=== PATIENT | female | born 1995 | race Caucasian/White ===

== ENCOUNTER 2018-10-04 02:29 | Emergency (ER) | payer MEDICAID ==
[~2018-10-04] VITALS: Ht 154.9 cm; Wt 89.8 kg
[2018-10-04 03:00] VITALS: BP_SYST 132
--- NOTE | 2018-10-04 03:08 | NUR ---
Pt ambulatory to bed 6 for evaluation
--- NOTE | 2018-10-04 03:20 | NUR ---
Patient AOx4, ambulatory, presents to ER with complaint of right breast pain 8/10 since yesterday at 1700. Patient states she had a normal vaginal delivery 2 months ago to twins. Patient states she is the twins. Patient states she also pumps milk. No other symptoms or complaints at this time. Mother at bedside.
--- NOTE | 2018-10-04 03:58 | NUR ---
TEDDY TORRES at bedside for medical evaluation.
--- NOTE | 2018-10-04 03:59 | NUR ---
ER MD Bowman performed right breast exam.
[2018-10-04] MEDS ORDERED: ACETAMINOPHEN 325 MG TABLET PO ONE (04:15)
--- NOTE | 2018-10-04 04:31 | NUR ---
pt resting comfortably in bed. no acute distress, will continue to monitor.
[2018-10-04 05:54] VITALS: BP_SYST 131
--- NOTE | 2018-10-04 05:54 | NUR ---
Patient given written and verbal discharge instructions and verbalizes understanding. ER MD discussed with patient the results and treatment provided. Patient in stable condition. ID arm band removed. Rx of Acetaminophen given. Patient educated on pain management and to follow up with PMD. Pain Scale 0. Opportunity for questions provided and answered. Medication side effect fact sheet provided.
== END 2018-10-04 05:54 | disposition home or self-care (01) ==
LOC: SED 02:29
DX: N60.02 Solitary cyst of left breast (principal); N64.4 Mastodynia
CPT/HCPCS: 76642; 99284

== ENCOUNTER 2019-07-01 10:07 | Emergency (ER) | payer MEDICAID ==
[~2019-07-01] VITALS: Ht 154.9 cm; Wt 68.0 kg
[2019-07-01 10:35] VITALS: BP_SYST 129
[2019-07-01 10:53] LABS: BASOPHILS % (AUTO) 0.4 % (0.0-2.0); EOSINOPHILS % (AUTO) 0.6 % (0.0-4.0); HEMATOCRIT 37.8 % (36-48); HEMOGLOBIN 12.5 g/dL (12.0-16.0); LYMPHOCYTES # (AUTO) 0.5 K/uL (1.0-5.5); LYMPHOCYTES % (AUTO) 10.3 % (20.5-51.5); MEAN CORPUSCULAR HEMOGLOBIN 27 pg (27-31); MEAN CORPUSCULAR HGB CONC 33 % (32-36); MEAN CORPUSCULAR VOLUME 82 fL (79.0-98.0); MONOCYTES # (AUTO) 0.5 K/uL (0.0-1.0); MONOCYTES % (AUTO) 9.6 % (1.7-9.3); NEUTROPHILS # (AUTO) 4.2 K/uL (1.8-7.7); NEUTROPHILS % (AUTO) 79.1 % (40.0-70.0); PLATELET COUNT (AUTO) 190 K/uL (130-430); RED BLOOD CELL COUNT(AUTO) 4.62 MIL/uL (4.2-6.2); WHITE BLOOD COUNT (AUTO) 5.3 K/uL (4.8-10.8)
[2019-07-01 11:05] LABS: INR 1.1 (0.8-1.2); PROTHROMBIN TIME 10.6 SECS (9.5-12.5)
[2019-07-01 11:06] LABS: BILIRUBIN,URINE NEGATIVE (NEGATIVE); BLOOD, URINE NEGATIVE (NEGATIVE); CLARITY/URINE CLEAR (CLEAR); COLOR,URINE YELLOW (YELLOW); GLUCOSE,URINE NEGATIVE (NEGATIVE); KETONES,URINE NEGATIVE (NEGATIVE); LEUKOCYTE ESTERASE ,URINE NEGATIVE (NEGATIVE); NITRITE, URINE NEGATIVE (NEGATIVE); PH,URINE 8.5 (5.0-8.0); PROTEIN URINE NEGATIVE (NEGATIVE); UROBILINOGEN,URINE 0.2 (0.2-1.0)
[2019-07-01 11:16] LABS: ALBUMIN 3.8 g/dL (3.4-4.8); CALCIUM 8.8 mg/dL (8.4-11.0); CREATININE 0.58 mg/dL (0.55-1.30); POTASSIUM 3.5 mmol/L (3.5-5.1); TOTAL BILIRUBIN 0.3 mg/dL (0.0-1.0)
[2019-07-01 11:55] VITALS: BP_SYST 129
== END 2019-07-01 11:15 | disposition home or self-care (01) ==
LOC: SED 10:07
DX: N61.0 Mastitis without abscess (principal); J06.9 Acute upper respiratory infection, unspecified; R05 Cough; J45.909 Unspecified asthma, uncomplicated
CPT/HCPCS: 36415; 71045; 80053; 81003; 81025; 82550-TC; 83605; 83690-TC; 84484; 85025; 85610-TC; 85730-TC; 87040-TC; 99284

== ENCOUNTER 2019-07-16 13:39 | Emergency (ER) | payer MEDICAID ==
[~2019-07-16] VITALS: Ht 154.9 cm; Wt 74.8 kg
[2019-07-16 13:53] VITALS: BP_SYST 108
[2019-07-16] MEDS ORDERED: ONDANSETRON 4 MG ODT TAB PO ONE (14:30)
--- NOTE | 2019-07-16 16:31 | NUR ---
Patient to [facility] for evaluation. Side rails up.
--- NOTE | 2019-07-16 16:32 | NUR ---
ER YOLANDA Myrick examining patient.
--- NOTE | 2019-07-16 16:33 | NUR ---
PT PRESENTS TO ED C/O N/V/D S/P FINISHED TX FOR PNA.
--- NOTE | 2019-07-16 16:44 | NUR ---
Moved to bed 2.
[2019-07-16 16:48] LABS: BILIRUBIN,URINE 1+ (NEGATIVE); BLOOD, URINE NEGATIVE (NEGATIVE); COLOR,URINE YELLOW (YELLOW); GLUCOSE,URINE NEGATIVE (NEGATIVE); KETONES,URINE 1+ (NEGATIVE); LEUKOCYTE ESTERASE ,URINE NEGATIVE (NEGATIVE); NITRITE, URINE NEGATIVE (NEGATIVE); PROTEIN URINE NEGATIVE (NEGATIVE); UROBILINOGEN,URINE 0.2 (0.2-1.0)
[2019-07-16] MEDS ORDERED: ONDANSETRON 4 MG ODT TAB ONE (16:49)
[2019-07-16 16:50] LABS: BASOPHILS # (AUTO) 0.1 K/uL (0.0-0.2); BASOPHILS % (AUTO) 0.8 % (0.0-2.0); EOSINOPHILS % (AUTO) 0.5 % (0.0-4.0); HEMATOCRIT 40.7 % (36-48); HEMOGLOBIN 13.3 g/dL (12.0-16.0); LYMPHOCYTES # (AUTO) 0.6 K/uL (1.0-5.5); LYMPHOCYTES % (AUTO) 7.9 % (20.5-51.5); MEAN CORPUSCULAR HEMOGLOBIN 27 pg (27-31); MEAN CORPUSCULAR HGB CONC 33 % (32-36); MEAN CORPUSCULAR VOLUME 81 fL (79.0-98.0); MONOCYTES # (AUTO) 0.6 K/uL (0.0-1.0); MONOCYTES % (AUTO) 7.2 % (1.7-9.3); NEUTROPHILS # (AUTO) 6.7 K/uL (1.8-7.7); NEUTROPHILS % (AUTO) 83.6 % (40.0-70.0); PLATELET COUNT (AUTO) 270 K/uL (130-430); RED CELL DISTRIBUTION WIDTH 14.7 % (9.0-15.0)
[2019-07-16 16:59] LABS: CLARITY/URINE SLIGHTLY HAZY (CLEAR)
[2019-07-16] MEDS ORDERED: IPRATROPIUM/ALBUTEROL SULFATE 3 ML AMPUL.NEB (DUONEB) INH ONE (17:00)
[2019-07-16 17:01] LABS: BACTERIA,URINE FEW /HPF (None Seen); MUCUS,URINE 3+ /LPF (None Seen); RBC,URINE 0-3 /HPF (0-3); WBC,URINE 0-3 /HPF (0-3)
--- NOTE | 2019-07-16 17:10 | NUR ---
pt is getting a breathing tx at the bedside.
[2019-07-16 17:17] LABS: CALCIUM 8.6 mg/dL (8.4-11.0); CREATININE 0.68 mg/dL (0.55-1.30)
[2019-07-16 17:21] LABS: ALBUMIN 4.1 g/dL (3.4-4.8); TOTAL BILIRUBIN 0.6 mg/dL (0.0-1.0)
[2019-07-16 17:26] LABS: POTASSIUM 2.9 mmol/L (3.5-5.1)
--- NOTE | 2019-07-16 17:29 | NUR ---
Medication reconciliation completed with information provided by patient. Any prior medication reconciliation on file was reviewed and corrected.
--- NOTE | 2019-07-16 17:40 | NUR ---
Patient transported to US via WC, accompanied by US tech.
--- NOTE | 2019-07-16 18:18 | NUR ---
pt returned from US.
[2019-07-16] MEDS: POTASSIUM CHLORIDE 40 MEQ, MAGNESIUM SULFATE 2 GM in 0.45% NS 250 ML IV ONE ×2 (18:33→18:46)
[2019-07-16] MEDS ORDERED: POTASSIUM CHLORIDE 20 MEQ/PKT PACKET PO ONE (18:45)
[2019-07-16 19:02] VITALS: BP_SYST 124
--- NOTE | 2019-07-16 19:03 | NUR ---
Patient given written and verbal discharge instructions and verbalizes understanding. ER MD discussed with patient the results and treatment provided. Patient in stable condition. ID arm band removed. IV catheter removed intact and dressing applied, no active bleeding. Rx of ALBUTEROL, TYLENOL, ZOFRAN, MEDROL DOSE PACK given. Patient educated on pain management and to follow up with PMD. Pain Scale 0/10. Opportunity for questions provided and answered. Medication side effect fact sheet provided.
== END 2019-07-16 19:00 | disposition home or self-care (01) ==
LOC: SED 13:39
DX: K29.00 Acute gastritis without bleeding (principal); E87.6 Hypokalemia; R51 Headache; J45.909 Unspecified asthma, uncomplicated
CPT/HCPCS: 36415; 71046; 76700; 80053; 81000; 81025; 83690; 85025; 86710; 94640; 99285; J3475; J3480; J7620; Q0162

== ENCOUNTER 2020-10-08 06:17 | Emergency (ER) | payer MEDICAID ==
[~2020-10-08] VITALS: Ht 154.9 cm; Wt 79.4 kg
[2020-10-08 06:25] VITALS: BP_SYST 118
[2020-10-08] MEDS ORDERED: METOCLOPRAMIDE HCL 10 MG TABLET PO ONE (06:30)
[2020-10-08] MEDS ORDERED: LOPERAMIDE HCL 2 MG CAPSULE PO ONE (06:30)
[2020-10-08 06:54] LABS: BILIRUBIN,URINE NEGATIVE (NEGATIVE); BLOOD, URINE NEGATIVE (NEGATIVE); COLOR,URINE YELLOW (YELLOW); GLUCOSE,URINE NEGATIVE (NEGATIVE); KETONES,URINE NEGATIVE (NEGATIVE); LEUKOCYTE ESTERASE ,URINE NEGATIVE (NEGATIVE); NITRITE, URINE NEGATIVE (NEGATIVE); PROTEIN URINE NEGATIVE (NEGATIVE); UROBILINOGEN,URINE 0.2 (0.2-1.0)
[2020-10-08 06:57] LABS: CLARITY/URINE SLIGHTLY HAZY (CLEAR)
[2020-10-08] MEDS ORDERED: METO-290 PO (08:07)
[2020-10-08] MEDS ORDERED: LOPE2CAP PO (08:07)
[2020-10-08 08:25] VITALS: BP_SYST 121
== END 2020-10-08 06:26 | disposition home or self-care (01) ==
LOC: SED 06:17
DX: K52.9 Noninfective gastroenteritis and colitis, unspecified (principal); J45.909 Unspecified asthma, uncomplicated; Z79.899 Other long term (current) drug therapy; Z20.822 Contact with and (suspected) exposure to COVID-19
CPT/HCPCS: 81003; 81025; 99283; J8597; U0003

== ENCOUNTER 2021-09-19 09:06 | Emergency (ER) | payer MEDICAID ==
[~2021-09-19] VITALS: Ht 154.9 cm; Wt 86.6 kg
[~2021-09-19 09:06] MED LIST: LOPE2CAP PO; METO-290 PO
[2021-09-19 09:12] VITALS: BP_SYST 119
--- NOTE | 2021-09-19 09:24 | NUR ---
Placed in room 7 . Placed on nuclear monitoring technician, blood pressure machine and pulse oximeter. To gown for exam. Side rails up. Report given to GUEVARA VALLEJO.
--- NOTE | 2021-09-19 09:33 | NUR ---
Pt to bed #7 coming from home ambulatory with steady gait accompanied by mother. Pt c/o having flu symptoms since . Pt has nausea, diarrhea, vomiting, fever, generalized weakness and pain. Pt rates pain 9/10. Pt states she is vaccinated for covid and had no close contact with covid. Pt is A&Ox4. Ambulatory with steady gait. Skin intact. NKA. Has hx of Asthma. Bed in lowest poaition and connected to monitoring specialist. VSS.
--- NOTE | 2021-09-19 09:56 | NUR ---
TEDDY Hoskins at bedside examining patient.
[2021-09-19 10:00] LABS: BILIRUBIN,URINE NEGATIVE (NEGATIVE); BLOOD, URINE NEGATIVE (NEGATIVE); CLARITY/URINE CLEAR (CLEAR); COLOR,URINE YELLOW (YELLOW); GLUCOSE,URINE NEGATIVE (NEGATIVE); KETONES,URINE NEGATIVE (NEGATIVE); LEUKOCYTE ESTERASE ,URINE NEGATIVE (NEGATIVE); NITRITE, URINE NEGATIVE (NEGATIVE); PROTEIN URINE NEGATIVE (NEGATIVE); UROBILINOGEN,URINE 0.2 (0.2-1.0)
--- NOTE | 2021-09-19 10:14 | NUR ---
Chest X-Ray being done at bedside.
--- NOTE | 2021-09-19 10:30 | NUR ---
# 20 gauge angiocath placed to left AC. Use of asceptic technique. Opsite placed over site. Blood return noted. Blood for lab drawn from site. Flushed with 10 cc of normal saline. No evidence of infiltration noted. Patient tolerated well.
[2021-09-19 10:37] LABS: BASOPHILS % (AUTO) 0.2 % (0.0-2.0); EOSINOPHILS % (AUTO) 0.1 % (0.0-4.0); HEMATOCRIT 37.5 % (36-48); HEMOGLOBIN 12.4 g/dL (12.0-16.0); LYMPHOCYTES # (AUTO) 0.4 K/uL (1.0-5.5); LYMPHOCYTES % (AUTO) 2.7 % (20.5-51.5); MEAN CORPUSCULAR HEMOGLOBIN 26 pg (27-31); MEAN CORPUSCULAR HGB CONC 33 % (32-36); MEAN CORPUSCULAR VOLUME 79 fL (79.0-98.0); MONOCYTES # (AUTO) 0.9 K/uL (0.0-1.0); MONOCYTES % (AUTO) 6.2 % (1.7-9.3); NEUTROPHILS # (AUTO) 13.1 K/uL (1.8-7.7); NEUTROPHILS % (AUTO) 90.8 % (40.0-70.0); PLATELET COUNT (AUTO) 191 K/uL (130-430); RED BLOOD CELL COUNT(AUTO) 4.77 MIL/uL (4.2-6.2); RED CELL DISTRIBUTION WIDTH 14.5 % (9.0-15.0); WHITE BLOOD COUNT (AUTO) 14.5 K/uL (4.8-10.8)
[2021-09-19] MEDS: NS 1000 ML IV.SOLN IV ONE (10:41)
[2021-09-19] MEDS: KETOROLAC TROMETHAMINE 30 MG VIAL IVP ONE (10:41)
[2021-09-19] MEDS: METOCLOPRAMIDE HCL 10 MG/2 ML VIAL IVP ONE (10:41)
[2021-09-19] MEDS: ACETAMINOPHEN 500 MG TABLET PO ONE (10:42)
[2021-09-19 11:13] LABS: CALCIUM 9.1 mg/dL (8.4-11.0); CREATININE 0.83 mg/dL (0.55-1.30); POTASSIUM 3.3 mmol/L (3.5-5.1)
[2021-09-19 11:19] LABS: TOTAL BILIRUBIN 0.2 mg/dL (0.0-1.0)
[2021-09-19] MEDS ORDERED: PIPERACILLIN/TAZOBACTAM 3.375 GM/VIAL (ZOSYN) IV ONE (11:52)
[2021-09-19] MEDS ORDERED: LORA10TA7 PO (11:56)
[2021-09-19] MEDS ORDERED: ONDA-8 TL (11:56)
[2021-09-19] MEDS ORDERED: AMOX500C2 PO (11:56)
[2021-09-19] MEDS: POTASSIUM CHLORIDE 20 MEQ/PKT PACKET PO ONE (12:02)
[2021-09-19] MEDS: PIPERACILLIN/TAZO 3.375 GM in NS 50 ML IV ONE (12:02)
--- NOTE | 2021-09-19 12:10 | NUR ---
covid swab done and sent to lab.
--- NOTE | 2021-09-19 12:24 | NUR ---
PT AMBULATES TO BATHROOM WITH STEADY GAIT
[2021-09-19 12:39] VITALS: BP_SYST 103
--- NOTE | 2021-09-19 12:40 | NUR ---
Patient given written and verbal discharge instructions and verbalizes understanding. ER MD discussed with patient the results and treatment provided. Patient in stable condition. ID arm band removed. IV catheter removed intact and dressing applied, no active bleeding. Rx of Zofran and Aoxicillin given. Patient educated on pain management and to follow up with PMD. Pain Scale . Opportunity for questions provided and answered. Medication side effect fact sheet provided.
== END 2021-09-19 12:40 | disposition home or self-care (01) ==
LOC: SED 09:06
DX: J01.90 Acute sinusitis, unspecified (principal); E86.0 Dehydration; Z20.822 Contact with and (suspected) exposure to COVID-19
CPT/HCPCS: 36415; 71045; 80053; 81003; 81025; 83605; 85025; 87040; 87086; 87426; 96365; 96375; 99284; J1885; J2543; J2765

== ENCOUNTER 2022-12-12 13:16 | Emergency (ER) | payer MEDICAID ==
[~2022-12-12] VITALS: Ht 157.5 cm; Wt 86.2 kg
[2022-12-12 13:16] VITALS: BP_SYST 117; PULSE 78; RESP 17; TEMP 97.5; O2SAT 98
[~2022-12-12 13:16] MED LIST changes: +AMOX500C2 PO; +LORA10TA7 PO; +ONDA-8 TL
--- NOTE | 2022-12-12 13:19 | NUR ---
Patient triaged and placed in waiting room. VSS and patient appears in no acute distress at this time. Accompanied by SPOUSE, awaiting available bed, and MD notified of need for MSE.
--- NOTE | 2022-12-12 14:30 | NUR ---
DR ROWLEY OUT TO TRIAGE ROOM FOR EVALUATION
[2022-12-12 15:19] LABS: BASOPHILS % (AUTO) 0.2 % (0.0-2.0); EOSINOPHILS # (AUTO) 0.4 K/uL (0.0-0.4); EOSINOPHILS % (AUTO) 3.6 % (0.0-4.0); HEMATOCRIT 39.9 % (36-48); LYMPHOCYTES # (AUTO) 1.4 K/uL (1.0-5.5); LYMPHOCYTES % (AUTO) 11.6 % (20.5-51.5); MEAN CORPUSCULAR HEMOGLOBIN 26 pg (27-31); MEAN CORPUSCULAR HGB CONC 33 % (32-36); MEAN CORPUSCULAR VOLUME 80 fL (79.0-98.0); MONOCYTES # (AUTO) 0.6 K/uL (0.0-1.0); NEUTROPHILS # (AUTO) 9.4 K/uL (1.8-7.7); NEUTROPHILS % (AUTO) 79.6 % (40.0-70.0); PLATELET COUNT (AUTO) 260 K/uL (130-430); RED BLOOD CELL COUNT(AUTO) 4.99 MIL/uL (4.2-6.2); RED CELL DISTRIBUTION WIDTH 15.8 % (9.0-15.0); WHITE BLOOD COUNT (AUTO) 11.8 K/uL (4.8-10.8)
[2022-12-12 15:24] LABS: ANION GAP 7 (5-15); CALCIUM 8.5 mg/dL (8.4-11.0); CHLORIDE 101 mmol/L (98-107); CREATININE 0.84 mg/dL (0.55-1.30); GFR AFRICAN AMERICAN 105 mL/min (>90); GLUCOSE 95 mg/dL (74-106); UREA NITROGEN, BLOOD 13 mg/dL (8-21)
[2022-12-12 15:31] LABS: ALANINE AMINOTRANSFERASE 10 U/L (12-78); ALBUMIN 3.7 g/dL (3.4-4.8); ASPARTATE AMINOTRANSFERASE 12 U/L (10-37); TOTAL BILIRUBIN 0.3 mg/dL (0.0-1.0)
--- NOTE | 2022-12-12 16:06 | NUR ---
Patient given written and verbal discharge instructions and verbalizes understanding. ER MD discussed with patient the results and treatment provided. Patient in stable condition. ID arm band removed. Rx of NONE given. Patient educated on pain management and to follow up with PMD. Pain Scale 6/10. Opportunity for questions provided and answered. Medication side effect fact sheet provided.
== END 2022-12-12 16:06 | disposition home or self-care (01) ==
LOC: SED 13:16
DX: R53.1 Weakness (principal); R42 Dizziness and giddiness; R05.9 Cough, unspecified; J45.909 Unspecified asthma, uncomplicated; Z79.899 Other long term (current) drug therapy
CPT/HCPCS: 36415; 71045; 80053; 82550; 84484; 84703; 85025; 93005; 99285

== ENCOUNTER 2024-01-09 07:32 | Emergency (ER) | payer MEDICAID ==
[~2024-01-09] VITALS: Ht 154.9 cm; Wt 95.3 kg
[2024-01-09 07:41] VITALS: BP_SYST 124; PULSE 96; RESP 20; TEMP 98.3; O2SAT 98
[2024-01-09] MEDS: ONDANSETRON 4 MG ODT TAB PO ONE (08:21)
[2024-01-09 08:37] LABS: BILIRUBIN,URINE NEGATIVE (NEGATIVE); BLOOD, URINE NEGATIVE (NEGATIVE); CLARITY/URINE CLEAR (CLEAR); COLOR,URINE YELLOW (YELLOW); GLUCOSE,URINE NEGATIVE (NEGATIVE); KETONES,URINE NEGATIVE (NEGATIVE); LEUKOCYTE ESTERASE ,URINE NEGATIVE (NEGATIVE); NITRITE, URINE NEGATIVE (NEGATIVE); PH,URINE 8.5 (5.0-8.0); PROTEIN URINE NEGATIVE (NEGATIVE); UROBILINOGEN,URINE 0.2 (0.2-1.0)
[2024-01-09 08:53] LABS: BASOPHILS % (AUTO) 0.3 % (0.0-2.0); EOSINOPHILS % (AUTO) 0.5 % (0.0-4.0); HEMOGLOBIN 12.2 g/dL (12.0-16.0); LYMPHOCYTES # (AUTO) 0.4 K/uL (1.0-5.5); LYMPHOCYTES % (AUTO) 4.1 % (20.5-51.5); MEAN CORPUSCULAR HEMOGLOBIN 25 pg (27-31); MEAN CORPUSCULAR HGB CONC 33 % (32-36); MEAN CORPUSCULAR VOLUME 77 fL (79.0-98.0); MONOCYTES # (AUTO) 0.3 K/uL (0.0-1.0); MONOCYTES % (AUTO) 3.1 % (1.7-9.3); NEUTROPHILS # (AUTO) 9.3 K/uL (1.8-7.7); PLATELET COUNT (AUTO) 258 K/uL (130-430); RED BLOOD CELL COUNT(AUTO) 4.81 MIL/uL (4.2-6.2); RED CELL DISTRIBUTION WIDTH 16.3 % (9.0-15.0); WHITE BLOOD COUNT (AUTO) 10.1 K/uL (4.8-10.8)
[2024-01-09 09:14] LABS: ALANINE AMINOTRANSFERASE 15 U/L (12-78); ALBUMIN 3.6 g/dL (3.4-4.8); AMYLASE 46 U/L (0-100); ANION GAP 11 (5-15); ASPARTATE AMINOTRANSFERASE 15 U/L (10-37); BILIRUBIN,DIRECT 0.1 mg/dL (0.0-0.3); CALCIUM 8.8 mg/dL (8.4-11.0); CARBON DIOXIDE 23 mmol/L (23-29); CHLORIDE 103 mmol/L (98-107); CREATININE 0.74 mg/dL (0.55-1.30); GFR AFRICAN AMERICAN 120 mL/min (>90); GLUCOSE 100 mg/dL (74-106); LIPASE 31 U/L (16-77); POTASSIUM 3.8 mmol/L (3.5-5.1); SODIUM SERUM 137 mmol/L (136-145); TOTAL BILIRUBIN 0.6 mg/dL (0.0-1.0); TOTAL PROTEIN, SERUM 7.3 g/dL (6.4-8.3); UREA NITROGEN, BLOOD 10 mg/dL (8-21)
[2024-01-09 09:15] LABS: GFR NON AFRICAN-AMERICAN 99 mL/min (>90)
[2024-01-09 09:19] LABS: PROTHROMBIN TIME 10.9 SECS (9.5-12.5)
[2024-01-09 09:21] LABS: SERUM HCG (QUALITATIVE) NEGATIVE (NEGATIVE)
[2024-01-09] MEDS ORDERED: ONDA-8 TL (09:35)
[2024-01-09] MEDS ORDERED: IBUP-1969 PO (09:35)
[2024-01-09 09:36] LABS: ACETONE, SERUM NEGATIVE (NEGATIVE)
[2024-01-09 09:55] VITALS: BP_SYST 124; PULSE 96; RESP 20; TEMP 98.3; O2SAT 98
== END 2024-01-09 09:54 | disposition home or self-care (01) ==
LOC: SED 07:32
DX: A05.9 Bacterial foodborne intoxication, unspecified (principal); R10.84 Generalized abdominal pain; R11.10 Vomiting, unspecified; J45.909 Unspecified asthma, uncomplicated; Z79.899 Other long term (current) drug therapy; Z79.2 Long term (current) use of antibiotics
CPT/HCPCS: 99284; 74176; 80076; 80048; 81001; 82009; 82150; 84703; 83690; 85025; 85610; 85730; 36415; 81025; 83605; 81003; Q0162